=== PATIENT | female | born 1985 | race Caucasian/White ===

== ENCOUNTER 2023-09-11 19:00 | Inpatient (IN) | payer OTHER ==
[2023-09-12] MEDS: Lactated Ringer's 1,000 ML IV SCH (21:30)
[2023-09-12 22:31] VITALS: BMI 30.4
[2023-09-12] MEDS ORDERED: Promethazine HCl 25 MG/ML VIAL IM PRN (23:03)
[2023-09-12] MEDS ORDERED: Ondansetron PF 4 MG/2 ML Vial IVP PRN (23:03)
[2023-09-12] MEDS ORDERED: Misoprostol 200 MCG TAB PR PRN (23:03)
[2023-09-12] MEDS ORDERED: Methylergonovine 0.2 MG/ML VIAL IM PRN (23:03)
[2023-09-12] MEDS ORDERED: Diphenoxylate HCl/Atropine Tablet PO PRN ×2 (23:03)
[2023-09-12] MEDS ORDERED: fentaNYL 50 mcg/mL 1 mL Vial SLOW IVP PRN (23:03)
[2023-09-12] MEDS ORDERED: HYDROcodone/Acetaminophen 5/325 mg Tablet PO PRN ×2 (23:03)
[2023-09-12] MEDS ORDERED: Carboprost 250 MCG/ML AMP IM PRN (23:03)
[2023-09-12] MEDS ORDERED: Ibuprofen 800 MG TAB PO PRN (23:03)
[2023-09-12] MEDS ORDERED: Lidocaine 1% (PF) 30 ML VIAL SC PRN (23:03)
[2023-09-12] MEDS ORDERED: Acetaminophen 500 MG TAB PO PRN (23:03)
[2023-09-12] MEDS ORDERED: Zolpidem Tartrate 5 MG TAB PO PRN (23:03)
[2023-09-12] MEDS ORDERED: hydrALAZINE 20 MG/ML VIAL SLOW IVP PRN (23:03)
[2023-09-12] MEDS ORDERED: Oxytocin 30 units/NS 500 ML 500 ML IV SCH ×2 (23:03)
[2023-09-12 23:16] LABS: Hematocrit 27.9 % (34.9-44.5); Hemoglobin 9.8 g/dL (12.0-15.5); Mean Corpuscular HGB CONC 35.1 g/dL (32.0-36.0); Mean Corpuscular Hemoglobin 33.7 pg (27.0-33.0); Mean Corpuscular Volume 95.9 fl (81.6-98.3); Mean Platelet Volume 11.6 fl (7.4-10.4); Platelet Count 232 10x3/uL (150-450); RBC Distribution Width 13.1 % (11.5-14.5); Red Blood Cell (RBC) Count 2.91 10x6/uL (3.90-5.03); White Blood Cell (WBC) Count 10.9 10x3/uL (3.5-10.5)
[2023-09-12] MEDS: Misoprostol 100 MCG TAB VAG SCH (23:27)
[2023-09-12 23:39] LABS: Syphilis Antibody Nonreactive (Nonreactive); Syphilis Antibody Index 0.04 S/CO (<1.00 Non-Reactive)
[2023-09-12 23:40] LABS: HBSAg Index 0.16 S/CO (0-0.99); Hep B Surf Ag - L&D Non-Reactive S/CO (NonReactive)
[2023-09-13] MEDS: Misoprostol 100 MCG TAB VAG SCH ×2 (02:41→21:06)
[2023-09-13] MEDS: Lactated Ringer's 1,000 ML IV SCH ×2 (02:43→21:06)
[2023-09-13] MEDS ORDERED: fentaNYL/Ropivacaine Epidural 100 ML ONE (12:17)
[2023-09-13] MEDS ORDERED: Sodium Bicarbonate 2.5 MEQ/5 ML VIAL ONE (12:24)
[2023-09-13] MEDS ORDERED: Promethazine HCl 25 MG/ML VIAL IM PRN (13:21)
[2023-09-13] MEDS ORDERED: Moisturizing Cream (Eucerin) 113 GM JAR TOP PRN (13:21)
[2023-09-13] MEDS ORDERED: ePHEDrine Sulfate 50 MG/10 ML VIAL SLOW IVP PRN (13:21)
[2023-09-13] MEDS ORDERED: diphenhydrAMINE 50 MG/ML VIAL IVP PRN (13:21)
[2023-09-13] MEDS ORDERED: Naloxone HCl 0.4 mg/ml Vial IVP PRN ×2 (13:21)
[2023-09-13] MEDS ORDERED: Ondansetron PF 4 MG/2 ML Vial IVP PRN (13:21)
[2023-09-13] MEDS ORDERED: Lactated Ringer's 500 ML IV PRN (13:21)
[2023-09-13] MEDS ORDERED: Acetaminophen 325 MG TAB PO PRN (13:21)
[2023-09-13] MEDS ORDERED: Communication Order-Pharmacy FS SCH (13:30)
[2023-09-13] MEDS ORDERED: fentaNYL 2 mcg/Ropivacaine 0.2% Epidural 100 ML CADD EPIDURAL SCH (13:30)
[2023-09-13] MEDS ORDERED: fentaNYL 50 mcg/mL 1 mL Vial ONE (14:34)
[2023-09-13] MEDS ORDERED: diphenhydrAMINE 25 MG CAP PO PRN (18:36)
[2023-09-13] MEDS ORDERED: Bisacodyl 10 MG SUPP PR PRN (18:36)
[2023-09-13] MEDS ORDERED: Boostrix 0.5 ML (Tdap) VIAL (>/=7 yrs of age) IM ONE (18:36)
[2023-09-13] MEDS ORDERED: hydrALAZINE 20 MG/ML VIAL SLOW IVP PRN (18:36)
[2023-09-13] MEDS ORDERED: Lanolin Ointment 7 GM TUBE TOP PRN (18:36)
[2023-09-13] MEDS ORDERED: Preparation H Ointment 28 GM TUBE PR PRN (18:36)
[2023-09-13] MEDS ORDERED: Benzocaine-Menthol 82.5 ML CAN TOP PRN (18:36)
[2023-09-13] MEDS ORDERED: Milk Of Magnesia 30 ML UDCUP PO PRN (18:36)
[2023-09-13] MEDS ORDERED: traMADol HCl 50 MG TAB PO PRN (18:36)
[2023-09-13] MEDS: Ibuprofen 800 MG TAB PO SCH (21:11)
[2023-09-13] MEDS: Docusate 100 MG CAP PO SCH (22:03)
[2023-09-13] MEDS: Acetaminophen 500 MG TAB PO PRN (22:04)
[2023-09-14] MEDS: Ibuprofen 800 MG TAB PO SCH ×3 (03:46→21:17)
[2023-09-14] MEDS: Acetaminophen 500 MG TAB PO PRN ×3 (05:10→21:21)
[2023-09-14] MEDS: Prenatal Vitamin 1 TAB PO SCH (10:15)
[2023-09-14] MEDS: Docusate 100 MG CAP PO SCH ×2 (10:15→21:21)
[2023-09-14] MEDS: Ferrous Sulfate 325 MG TAB PO SCH ×2 (10:15→17:17)
[2023-09-15] MEDS: Ibuprofen 800 MG TAB PO SCH (05:30)
[2023-09-15] MEDS: Acetaminophen 500 MG TAB PO PRN (06:01)
[2023-09-15 07:55] VITALS: BP 110/73; TEMP 98.6
[2023-09-15] MEDS: Docusate 100 MG CAP PO SCH (08:52)
[2023-09-15] MEDS: Ferrous Sulfate 325 MG TAB PO SCH (08:52)
[2023-09-15] MEDS: Prenatal Vitamin 1 TAB PO SCH (08:54)
== END 2023-09-15 12:20 | disposition home or self-care (01) | DRG 807 ==
LOC: CSHLD 09-12 21:19 → CSHPP 09-13 20:54
PROVIDERS: ADMIT Obstetrics & Gynecology; ATTEND Obstetrics & Gynecology
PROC: 10D07Z3 Extraction of Products of Conception, Low Forceps, Via Natural or Artificial Opening (ICD-10-PCS; principal; 2023-09-13)
PROC: 0KQM0ZZ Repair Perineum Muscle, Open Approach (ICD-10-PCS; 2023-09-13)
DX: O76 Abnormality in fetal heart rate and rhythm complicating labor and delivery (principal); Z37.0 Single live birth; Z3A.39 39 weeks gestation of pregnancy; O70.1 Second degree perineal laceration during delivery; Z91.040 Latex allergy status; Z88.8 Allergy status to other drugs, medicaments and biological substances; O34.13 Maternal care for benign tumor of corpus uteri, third trimester; D25.9 Leiomyoma of uterus, unspecified
CPT/HCPCS: 51701; 51702; 85027; 86780; 86850; 86900; 86901; 87340; J2405; J3010; J7120